=== PATIENT | female | born 1975 | race Caucasian/White ===

== ENCOUNTER → 2017-01-05 | Outpatient (CLI) | payer OTHER | LOC: KOH-I 13:07 | DX: M79.604 Pain in right leg (principal) | CPT/HCPCS: 73564 ==

== ENCOUNTER → 2017-01-16 | Outpatient (CLI) | payer OTHER | LOC: KOH-I 14:55 | DX: M79.604 Pain in right leg (principal); M71.21 Synovial cyst of popliteal space [Baker], right knee | CPT/HCPCS: 73721 ==